=== PATIENT | female | born 1945 | race Caucasian/White ===

== ENCOUNTER 2019-09-25 17:42 | Emergency (ER) | payer MEDICARE, SELFPAY ==
[2019-09-25 17:58] VITALS: BP 148/62; PULSE 67; RESP 20; TEMP 36.3; O2SAT 99
--- NOTE | 2019-09-25 18:03 | ED.FEMALEGU ---
HPI - Female Genitourinary General Chief complaint: Urogenital-Female Stated complaint: pos uti Source: patient and RN notes reviewed Limitations: no limitations History of Present Illness HPI Narrative: The patient, previously mostly healthy, presents with urinary symptoms for a half week with frequency, urgency and mild dysuria.. Record review indicates patient has a ~2015 history of cystitis pansensitive [except Macrobid ]Proteus mirabilis . She complains of similar symptoms that are mild, worse in the micturation .No fever, abdominal pain, N/V/D/dehydration, discharge, rash. The patient has been informed that they may have pre-hypertension or Hypertension based on a BP reading in the department. I recommend that the patient call the primary care provider listed on their discharge instructions or a physician of their choice this week to arrange follow up for further evaluation of possible pre-hypertension or Hypertension Related Data Home Medications Medication Instructions Recorded Confirmed omeprazole 20 mg PO DAILY 09/25/19 09/25/19 triamcinolone acetonide 1 applic TOPICAL DAILY 09/25/19 09/25/19 Allergies Allergy/AdvReac Type Severity Reaction Status Date / Time cefaclor Allergy Unknown Unknown Verified 09/25/19 18:06 doxycycline Allergy Unknown Unknown Verified 09/25/19 18:06 Penicillins Allergy Unknown Unknown Verified 09/25/19 18:06 Sulfa (Sulfonamide Allergy Unknown Unknown Verified 09/25/19 18:06 Antibiotics) Review of Systems Review of Systems: Narrative: General/Constitutional: No weight loss,fever Eyes: N0: Redness,discharge Ears/Nose/Throat: No: Epistaxis,ear discharge Respiratory: Denies: Hemoptysis Gastrointestinal: No Vomiting, Bleeding-rectal Skin: No Lumps, eruption Neurologic: No Focal Weakness,Sz Hematologic: Denies: Petechiae/Purpura Psychiatric: No: Suicida ideationl All Other Systems: Reviewed and Negative [facility] Past Medical History Medical History (Updated 09/26/19 @ 08:54 by Joaquin Teran MD) Anxiety about health Bloating GERD (gastroesophageal reflux disease) Hypoestrogenism Irritable bowel syndrome with constipation Light headed Low vitamin D level Mitral valve prolapse Pelvic floor dysfunction in female Postmenopausal Rectocele Small intestinal bacterial overgrowth Surgical History Surgical History (Updated 03/03/19 @ 18:32 by NEERU Dash) Hx of hysterectomy Social History Social History Smoking status: Never smoker Second hand tobacco smoke exposure: No Alcohol intake: never Comments At time of signature, agree with nursing past medical, surgical, social and family history. There is no relevant family history pertinent to the presenting complaint Exam Narrative: Exam Narrative: General Appearance: Well appearing, No distress EYE: PERRLA, Conjunctiva clear Ears: External ear normal Nose: Normal nose Mouth/Throat: Normal appearing, Normal lips, Supple Respiratory: Airway patent, No respiratory distress Cardiovascular: no JVD Abdomen: Soft, Non-tender, Musculoskeletal: Full ROM Skin: Warm, Dry Neurological: A&O x3, CN II-X intact Psychiatric: Normal mood, Normal affect Course Course Emergency Course: Patient describes multiple, old, unknown allergy mostly gastrointestinal. Cipro was originally sent to the pharmacy, patient requests something different- so prescribed omnicef Vital Signs Vital signs: Vital Signs Temperature 97.3 F L 09/25/19 17:58 Pulse Rate 67 09/25/19 17:58 Respiratory Rate 20 09/25/19 17:58 Blood Pressure 148/62 H 09/25/19 17:58 Pulse Oximetry 99 09/25/19 17:58 Temperature 97.3 F L 09/25/19 17:58 Pulse Rate 67 09/25/19 17:58 Respiratory Rate 20 09/25/19 17:58 Blood Pressure 148/62 H 09/25/19 17:58 Pulse Oximetry 99 09/25/19 17:58 MDM - Female Genitourinary Lab Data Labs: Urine Glucose
== END 2019-09-25 18:21 | disposition home or self-care (01) ==
PROVIDERS: Emergency Provider Emergency Medicine; PCP Internal Medicine
DX: N30.00 Acute cystitis without hematuria (principal); Z96.652 Presence of left artificial knee joint
CPT/HCPCS: 81003; 87077; 87086; 87088; 87186; 99213; G0463

== ENCOUNTER 2019-10-05 14:19 | Emergency (ER) | payer MEDICARE, SELFPAY ==
[2019-10-05 14:30] VITALS: BP 147/74; PULSE 77; RESP 16; TEMP 36.6; O2SAT 100
--- NOTE | 2019-10-05 14:31 | ED.FEMALEGU ---
HPI - Female Genitourinary General Chief complaint: Urogenital-Female Stated complaint: urinary frequency/burning/abdominal pain Time Seen by Provider: 10/05/19 14:31 Source: patient History of Present Illness HPI Narrative: Patient was treated at this facility 10 days ago for urinary tract infection and placed on cefdinir 300 mg twice daily for 10 days. Patient states she finished her antibiotics yesterday. Patient continues with urinary symptoms. Urinary urgency, burning with urination and foul-smelling odor to urine. Patient denies any confusion no fever no flank pain patient denies any gross hematuria. Patient denies any pelvic pain no abdominal pain denies any concern for STDs. MD elicited complaint: dysuria and UTI Urinary symptoms: Dysuria and Urgency Related Data Home Medications Medication Instructions Recorded Confirmed omeprazole 20 mg PO DAILY 09/25/19 10/05/19 triamcinolone acetonide 1 applic TOPICAL DAILY 09/25/19 10/05/19 Allergies Allergy/AdvReac Type Severity Reaction Status Date / Time Penicillins Allergy Unknown Rash Verified 10/05/19 14:44 cefaclor AdvReac Unknown Other Verified 10/05/19 14:48 doxycycline AdvReac Unknown Dizziness Verified 10/05/19 14:46 Sulfa (Sulfonamide AdvReac Unknown Nausea and Verified 10/05/19 14:46 Antibiotics) Vomiting ciprofloxacin [From Cipro] AdvReac Other Verified 10/05/19 14:47 Review of Systems Review of Systems: Narrative: CONSTITUTIONAL: Denies fever, chills, or sweats. EYES: Denies visual changes, redness, or discharge. ENT: Denies rhinorrhea, congestion, sore throat, or otalgia. CARDIOVASCULAR: Denies chest pain, palpitations, or edema. RESPIRATORY: Denies cough or dyspnea. GASTROINTESTINAL: Denies abdominal pain, nausea, vomiting, or diarrhea. GENITOURINARY: Denies hematuria. Reports burning with urination and urinary urgency SKIN: Denies rash or itching. MUSCULOSKELETAL: Denies back pain, joint pain, or myalgia. NEUROLOGIC: Denies headache, numbness, or weakness. PSYCHIATRIC: Denies anxiety or depression. [facility] Past Medical History Medical History (Updated 09/26/19 @ 08:54 by Joaquin Teran MD) Anxiety about health Bloating GERD (gastroesophageal reflux disease) Hypoestrogenism Irritable bowel syndrome with constipation Light headed Low vitamin D level Mitral valve prolapse Pelvic floor dysfunction in female Postmenopausal Rectocele Small intestinal bacterial overgrowth Surgical History Surgical History (Updated 03/03/19 @ 18:32 by NEERU Dash) Hx of hysterectomy Social History Social History Smoking status: Never smoker Second hand tobacco smoke exposure: No Alcohol intake: never Comments At time of signature, agree with nursing past medical, surgical, social and family history. There is no relevant family history pertinent to the presenting complaint Exam Narrative: Exam Narrative: GENERAL: Well-appearing, well-nourished, and in no acute distress. HEAD: Normocephalic, atraumatic. EYES: PERRLA and EOMI. ENT: Nares clear, no rhinorrhea or epistaxis. Mucous membranes moist. NECK: Supple. CHEST: Clear to auscultation. No respiratory distress. HEART: Regular rate and rhythm. No murmur heard. Normal peripheral pulses. ABDOMEN: Soft, nontender, nondistended, normal active bowel sounds. EXTREMITIES: Normal range of motion. No edema. SKIN: Warm, dry, no rash. NEURO: No focal deficits. Alert and oriented x3. Saul Coma Scale Eye Opening: Spontaneous 4 Saul Coma Scale Motor: Obeys Commands 6 Saul Coma Scale Verbal: Oriented 5 Saul Coma Scale Total 15 Course Vital Signs Vital signs: Vital Signs Temperature 36.6 C 10/05/19 14:30 Pulse Rate 77 10/05/19 14:30 Respiratory Rate 16 10/05/19 14:30 Blood Pressure 147/74 H 10/05/19 14:30 Pulse Oximetry 100 10/05/19 14:30 Temperature 36.6 C 10/05/19 14:30 Pulse Rate 77
--- NOTE | 2019-10-05 15:13 | PC.NURSE ---
RAFAELA CANCELLED AT PHARMACY PER CARRIE AGARWAL NP.
== END 2019-10-05 15:00 | disposition home or self-care (01) ==
PROVIDERS: Emergency Provider Nurse Practitioner Family; PCP Internal Medicine
DX: R30.0 Dysuria (principal); K21.9 Gastro-esophageal reflux disease without esophagitis; I34.1 Nonrheumatic mitral (valve) prolapse
CPT/HCPCS: 81003; 87086; 87088; 99213; G0463

== ENCOUNTER 2020-10-14 13:04 | Outpatient (RCR) | payer MEDICARE, SELFPAY ==
--- NOTE | 2020-10-14 16:33 | PTOPEVAL ---
PHYSICAL THERAPY EVALUATION Thank you for referring Patricia Oswald to [facility].? Patricia is not a candidate for skilled PT at this time due to her inability or unwillingness to alter her behavior in order to make functional changes and gains. I agree with the above. Referring Physician Date Admitting Provider: Attending Provider: Joaquin Roberts MD Referring Provider: *PT Outpatient Evaluation Start: 10/14/20 13:23 Freq: Status: Active Protocol: Document 10/14/20 13:23 WENDY (Rec: 10/14/20 14:40 WENDY [id number]) Therapy Assessment Status Assessment Status Assessment Status Evaluation Outpatient Past Medical History Past Medical History Source of Past Medical History Recalled from Previous Visit, Confirmed with Patient/Family Cardiovascular History Hx Mitral Valve Prolapse Yes Respiratory History Hx Other Respiratory Disorders Yes: seasonal allergies Gastrointestinal History Hx Gastroesophageal Reflux Disease Yes Hx Irritable Bowel Yes Genitourinary History Hx Urinary Tract Infection Yes Musculoskeletal History Hx Arthritis Yes Hx Joint Replacement Yes: left knee TKA 2016 HEENT History Hx Cataracts Yes Integumentary History Hx Other Skin Disorders Yes: lichen sclerosis Reproductive History Hx Hysterectomy Yes Hx Other Reproductive Disorders Yes: RECTOCELE, PELVIC FLOOR DYSFUNCTION,lichen sclerosis Psychosocial History Hx Anxiety Yes Hx Depression Yes Evaluation Information Problem Diagnosis constipation due to outlet dysfunction Subjective Information takes water enemas - to help Query Text:As Reported By Patient/ with colon evacuation tries Family to average 3 bowel movements/ day Will have cramping sensation in lower abdominal region Supposed to use a laxative - doesn't like Miralex - feels that she needs to take more than she is supposed to - not regular with it. Likes to use Becerra Milk of Magnesium - tends to take more that she should - has been cautioned against doing this. Coffee will help her BM - but then she will get acid reflux and gastric distress. Drinks 2-3 bottles of water per day. Hasn't had
== END 2020-12-28 14:50 | disposition home or self-care (01) ==
LOC: ANHPT 13:04
DX: K59.02 Outlet dysfunction constipation (principal)
CPT/HCPCS: 97162

== ENCOUNTER 2020-11-19 17:12 | Emergency (ER) | payer MEDICARE, SELFPAY ==
[2020-11-19 17:18] VITALS: BP 157/88; PULSE 69; RESP 16; TEMP 36.3; O2SAT 100
[2020-11-19 17:19] VITALS: BP 157/88; PULSE 69; RESP 16; TEMP 36.3; O2SAT 100
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
--- NOTE | 2020-11-19 17:47 | ECG_ITS ---
Measurements Intervals [place] Rate: 58 P: -69 WV: 148 QRS: 2 QRSD: 104 T: 21 QT: 424 QTc: 418 Interpretive Statements ECTOPIC ATRIAL BRADYCARDIA INCOMPLETE RIGHT BUNDLE BRANCH BLOCK ABNORMAL ECG Electronically Signed On 11-20-2020 8:29:04 CDT by Trip Jama D.O.
[2020-11-19 17:52] VITALS: BP 155/66
== END 2020-11-19 18:03 | disposition left against medical advice (07) ==
PROVIDERS: Emergency Provider Nurse Practitioner Family; PCP Internal Medicine
DX: R42 Dizziness and giddiness (principal); R51.9 Headache, unspecified; K21.9 Gastro-esophageal reflux disease without esophagitis; I34.1 Nonrheumatic mitral (valve) prolapse
CPT/HCPCS: 93005; 99213; G0463

== ENCOUNTER 2021-07-12 19:20 | Emergency (ER) | payer MEDICARE, SELFPAY ==
[2021-07-12 19:26] VITALS: BP 158/56; PULSE 76; RESP 16; TEMP 36.7; O2SAT 99
[2021-07-12 19:37] VITALS: BP 158/56; PULSE 76; RESP 16; TEMP 36.7; O2SAT 99
--- NOTE | 2021-07-12 19:44 | ED.URI ---
HPI - URI/Sore Throat General Chief Complaint: Upper Respiratory Infection Stated Complaint: feels flushed and shaky Time Seen by Provider: 07/12/21 19:45 Source: patient and RN notes reviewed Mode of arrival: ambulatory Limitations: no limitations History of Present Illness HPI Narrative: 76-year-old female presents with concern for tinnitus, postnasal drip. She reports some head congestion and headache, reports she has a history of allergies, however cannot take antihistamines due to her mitral valve prolapse. Reports she does take Flonase. Reports she has been seen by her primary care doctor and an ear nose and throat doctor and is currently being referred to a specialist for her tinnitus. Reports she recently had a head CT that was normal. She reports she got a steroid injection in her back yesterday and has since then felt a little flushed. MD elicited complaint: cough and sore throat Related Data Home Medications Medication Instructions Recorded Confirmed fluticasone propionate 50 2 ea intranasal DAILY 07/12/21 07/12/21 mcg/actuation nasal spray,suspension Allergies Allergy/AdvReac Type Severity Reaction Status Date / Time Penicillins Allergy Unknown Rash Verified 07/12/21 19:26 cefaclor AdvReac Unknown Other Verified 07/12/21 19:26 doxycycline AdvReac Unknown Dizziness Verified 07/12/21 19:26 Sulfa (Sulfonamide AdvReac Unknown Nausea and Verified 07/12/21 19:26 Antibiotics) Vomiting ciprofloxacin [From Cipro] AdvReac Other Verified 07/12/21 19:26 Review of Systems Review of Systems: CONSTITUTIONAL: Denies malaise, chills, sweats, or fever. EYES: Denies visual changes, redness, or discharge. ENT: Reports rhinorrhea, postnasal drip. Denies eye congestion, sinus pain, otalgia and sore throat. Reports tinnitus CARDIOVASCULAR: Denies chest pain, palpitations, or edema. RESPIRATORY: Denies cough. Denies dyspnea. GASTROINTESTINAL: Denies abdominal pain, nausea, vomiting, diarrhea SKIN: Denies rash or itching. MUSCULOSKELETAL: Denies myalgia. NEUROLOGIC: Reports headache. All systems reviewed & are unremarkable except as noted in HPI and below PMFSH Past Medical History Medical History Anxiety about health Bloating GERD (gastroesophageal reflux disease) Hemorrhoids Hypoestrogenism Irritable bowel syndrome with constipation Light headed Low vitamin D level Mitral valve prolapse Pelvic floor dysfunction in female Postmenopausal Rectocele Small intestinal bacterial overgrowth Surgical History Surgical History Hx of hysterectomy Family History Family History Grandparent Cerebrovascular accident Family history of malignant neoplasm Mother Heart disease Other Heart disease Depression Social History Social History Smoking status: Never smoker Second hand tobacco smoke exposure: No Alcohol intake: never Substance use: never Substance use type: does not use Comments At time of signature, agree with nursing past medical, surgical, social and family history. There is no relevant family history pertinent to the presenting complaint Exam Narrative: GENERAL: Well-appearing, well-nourished, and in no acute distress. HEAD: Normocephalic EYES: PERRLA, conjunctivae clear ENT: Nares clear, clear discharge. Mucous membranes moist. TM pearly aleman with sharp light reflex bilaterally; no tragal tenderness. Oropharynx not erythematous without lesions. Tonsils not enlarged and without exudate, no drooling, no hoarseness, no trismus, uvula midline. NECK: Supple. No lymphadenopathy CHEST: Clear to auscultation, breath sounds equal. No wheezing, rhonchi, rales, or stridor. No respiratory distress, speaks in full sentences. HEART: Regular rate and rhythm. No murmur heard.
== END 2021-07-12 20:10 | disposition home or self-care (01) ==
PROVIDERS: Emergency Provider Nurse Practitioner
DX: R09.82 Postnasal drip (principal); Z20.822 Contact with and (suspected) exposure to COVID-19; K21.9 Gastro-esophageal reflux disease without esophagitis; I34.1 Nonrheumatic mitral (valve) prolapse
CPT/HCPCS: 87426; 87804; 99213; C9803; G0463

== ENCOUNTER 2021-09-09 19:44 | Emergency (ER) | payer MEDICARE, SELFPAY ==
--- NOTE | 2021-09-09 19:49 | ED.FALL ---
HPI - Fall General Chief Complaint: Fall Stated Complaint: Fall Injury/Right Arm Injury Time Seen by Provider: 09/09/21 19:49 Source: patient and RN notes reviewed History of Present Illness HPI Narrative: Patient is a 76-year-old female who presents the urgent care with complaints of a bruise to the right upper arm for the last couple days. Patient states that she leaned heavily over a door jam with a lot of things in her hand causing a large bruise and she was concerned. Patient is not on any blood thinners or daily aspirin. Patient states she is also been feeling some fatigue, lethargy and may be some changes in blood pressure. Patient states that she has had these feelings for approximately 2 weeks and her PCP has been telling her to check her blood pressure daily. Patient states her last reading at home was 131/70 and she has stopped her blood pressure medication. Patient denies any chest pain or shortness of breath. Patient has been driving and functioning normally with the intermittent dizziness spells. Patient states she also did a colon prep last night with her long-term history of GI issues and will follow up with her GI doctor regarding those problems. Patient states that she had increased dizziness after the colon prep. No other acute complaints. No acute distress noted. Patient aware of the plan of care. Some parts of this dictation were generated by voice recognition software and may contain typographical and/or grammatical inaccuracies. Related Data Home Medications Medication Instructions Recorded Confirmed amlodipine 5 mg tablet 5 mg PO DAILY 09/09/21 09/09/21 Allergies Allergy/AdvReac Type Severity Reaction Status Date / Time Penicillins Allergy Unknown Rash Verified 09/09/21 20:05 cefaclor AdvReac Unknown Other Verified 09/09/21 20:05 doxycycline AdvReac Unknown Dizziness Verified 09/09/21 20:05 Sulfa (Sulfonamide AdvReac Unknown Nausea and Verified 09/09/21 20:05 Antibiotics) Vomiting ciprofloxacin [From Cipro] AdvReac Other Verified 09/09/21 20:05 Review of Systems Review of Systems: CONSTITUTIONAL: Denies fever, chills, or sweats. Reports of intermittent fatigue EYES: Denies visual changes, redness, or discharge. ENT: Denies rhinorrhea, congestion, sore throat, or otalgia. CARDIOVASCULAR: Denies chest pain, palpitations, or edema. RESPIRATORY: Denies cough or dyspnea. GASTROINTESTINAL: Denies abdominal pain, nausea, vomiting, or diarrhea. GENITOURINARY: Denies dysuria or hematuria. SKIN: Denies rash or itching. Reports of a bruise to the right upper arm MUSCULOSKELETAL: Denies back pain, joint pain, or myalgia. NEUROLOGIC: Reports of intermittent headaches and dizziness All other systems reviewed are negative, except as documented in HPI. [facility] Past Medical History Medical History Anxiety about health Bloating GERD (gastroesophageal reflux disease) Hemorrhoids Hypoestrogenism Irritable bowel syndrome with constipation Light headed Low vitamin D level Mitral valve prolapse Pelvic floor dysfunction in female Postmenopausal Rectocele Small intestinal bacterial overgrowth Surgical History Surgical History Hx of hysterectomy Family History Family History Grandparent Cerebrovascular accident Family history of malignant neoplasm Mother Heart disease Other Heart disease Depression Social History Social History Smoking status: Never smoker Second hand tobacco smoke exposure: No Alcohol intake: never Substance use: never Substance use type: does not use Comments At the time of my signature, I reviewed and agree with the nursing past medical, surgical, social, and family history. There is no relevant family history pertinent to the patient
[2021-09-09 19:51] VITALS: BP 155/77; PULSE 83; RESP 16; TEMP 36.6; O2SAT 99
== END 2021-09-09 20:10 | disposition home or self-care (01) ==
PROVIDERS: Emergency Provider Nurse Practitioner Family
DX: S40.021A Contusion of right upper arm, initial encounter (principal); X58.XXXA Exposure to other specified factors, initial encounter; R03.0 Elevated blood-pressure reading, without diagnosis of hypertension; K21.9 Gastro-esophageal reflux disease without esophagitis; I34.1 Nonrheumatic mitral (valve) prolapse
CPT/HCPCS: 99212; G0463

== ENCOUNTER 2022-07-05 19:10 | Emergency (ER) | payer MEDICARE, SELFPAY ==
[2022-07-05 19:18] VITALS: BP 137/71; PULSE 68; RESP 16; TEMP 35.6; O2SAT 99
--- NOTE | 2022-07-05 19:31 | ED.FEMALEGU ---
HPI - Female Genitourinary General Chief complaint: Urogenital-Female Stated complaint: Urinary Problem Time Seen by Provider: 07/05/22 19:31 Source: patient Mode of arrival: ambulatory Limitations: no limitations History of Present Illness HPI Narrative: 77-year-old female presents with complaint of pelvic pain, urinary frequency, blood in urine for the past 7 days. Reports she has a history of blood in urine. Reports she has had hematuria 3 times in the last week. Afebrile. Reports chronic back pain. Also reports chronic constipation related to IBS. Was seen in the ER 1 week ago and told ?full of gas ?. All systems reviewed and negative except as noted above. Related Data Home Medications Medication Instructions Recorded Confirmed azelastine 137 mcg (0.1 %) nasal 1 spray intranasal DAILY 07/05/22 07/05/22 spray aerosol duloxetine 20 mg capsule,delayed 20 mg PO DAILY 07/05/22 07/05/22 release famotidine 40 mg tablet 40 mg PO DAILY 07/05/22 07/05/22 Allergies Allergy/AdvReac Type Severity Reaction Status Date / Time Penicillins Allergy Unknown Rash Verified 07/05/22 19:24 cefaclor AdvReac Unknown Other Verified 07/05/22 19:24 doxycycline AdvReac Unknown Dizziness Verified 07/05/22 19:24 Sulfa (Sulfonamide AdvReac Unknown Nausea and Verified 07/05/22 19:24 Antibiotics) Vomiting ciprofloxacin [From Cipro] AdvReac Other Verified 07/05/22 19:24 Review of Systems Review of Systems: CONSTITUTIONAL: Denies fever, chills, or sweats. EYES: Denies visual changes, redness, or discharge. ENT: Denies rhinorrhea, congestion, sore throat, or otalgia. CARDIOVASCULAR: Denies chest pain, palpitations, or edema. RESPIRATORY: Denies cough or dyspnea. GASTROINTESTINAL: Denies abdominal pain, nausea, vomiting, or diarrhea. GENITOURINARY: Denies dysuria. Reports pelvic pain, hematuria. SKIN: Denies rash or itching. MUSCULOSKELETAL: Denies back pain, joint pain, or myalgia. NEUROLOGIC: Denies headache, numbness, or weakness. PSYCHIATRIC: Denies anxiety or depression. All other systems reviewed are negative, except as documented in HPI. [facility] Past Medical History Medical History Anxiety about health Bloating GERD (gastroesophageal reflux disease) Hemorrhoids Hypoestrogenism Irritable bowel syndrome with constipation Light headed Low vitamin D level Mitral valve prolapse Pelvic floor dysfunction in female Postmenopausal Rectocele Small intestinal bacterial overgrowth Surgical History Surgical History Hx of hysterectomy Family History Family History Grandparent Cerebrovascular accident Family history of malignant neoplasm Mother Heart disease Other Heart disease Depression Social History Social History Smoking status: Never smoker Second hand tobacco smoke exposure: No Alcohol intake: never Substance use: never Substance use type: does not use Comments At time of signature, agree with nursing past medical, surgical, social and family history. There is no relevant family history pertinent to the presenting complaint. Exam Narrative: GENERAL: This is a well-nourished, well-developed patient, in no apparent distress. HEAD: normocephalic, atraumatic. EYES: PERRL. Sclera clear/white. Vision is grossly intact. EARS: External ears normal NOSE: External nose normal NECK: Neck supple, non-tender without lymphadenopathy, masses or thyromegaly. CARDIOVASCULAR: Regular rate and rhythm without murmurs, gallops, or rubs. RESPIRATORY: Clear to auscultation. Breath sounds equal bilaterally. No wheezes, rales, or rhonchi. SKIN: warm, Dry, intact with no suspicious lesions or rash, good texture and turgor. NEURO: awake, alert, and oriented to person, place and time.
== END 2022-07-05 19:55 | disposition home or self-care (01) ==
PROVIDERS: Emergency Provider Nurse Practitioner Family
DX: N39.0 Urinary tract infection, site not specified (principal); K21.9 Gastro-esophageal reflux disease without esophagitis; I34.1 Nonrheumatic mitral (valve) prolapse
CPT/HCPCS: 81003; 87086; 99213; G0463

== ENCOUNTER 2023-02-17 16:35 | Emergency (ER) | payer MEDICARE, SELFPAY ==
[2023-02-17 16:45] VITALS: BP 160/70; PULSE 78; RESP 20; TEMP 36.7; O2SAT 99
--- NOTE | 2023-02-17 17:26 | ED.DENTAL ---
HPI - Dental/Oral General Chief complaint: Dental/Oral Stated complaint: Toothache/Abdominal Pain Source: patient, RN notes reviewed and old records reviewed Mode of arrival: ambulatory Limitations: no limitations History of Present Illness HPI Narrative: 77 year female presents to [facility] with complaint left lower dental pain this started in November. Patient states seen a dentist chest pain pain patient states was given dexamethasone with no relief. Patient was then prescribed clindamycin the patient states is scared to take clindamycin because she has history of IBS and is worried she is going to flare up. Patient also states has had increased acid reflux. Patient already taking 20 of omeprazole. MD Complaint: tooth pain Related Data Home Medications Medication Instructions Recorded Confirmed esomeprazole magnesium 20 mg 20 mg PO DAILY 02/17/23 02/17/23 capsule,delayed release Allergies Allergy/AdvReac Type Severity Reaction Status Date / Time Penicillins Allergy Unknown Rash Verified 02/17/23 17:24 cefaclor AdvReac Unknown Other Verified 02/17/23 17:24 doxycycline AdvReac Unknown Dizziness Verified 02/17/23 17:24 Sulfa (Sulfonamide AdvReac Unknown Nausea and Verified 02/17/23 17:24 Antibiotics) Vomiting ciprofloxacin [From Cipro] AdvReac Other Verified 02/17/23 17:24 Review of Systems Constitutional: Constitutional: Reports no additional constitutional complaints, Denies body ache(s), Denies chills, Denies fatigue, Denies fever(s) and Denies headache(s) Eyes: Eyes: Reports no additional eye complaints and Denies blurry vision ENT: Reports system reviewed and no additional complaints, except as documented, Reports dental pain, Denies vertigo, Denies dizziness, Denies ear discharge, Denies otalgia, Denies facial pain, Denies headache(s), Denies nasal congestion, Denies nasal discharge, Denies sinus pain, Denies sinus pressure and Denies sore throat Cardiovascular: Cardiovascular: Reports no additional cardiovascular complaints, Denies chest pain, Denies chest pain at rest, Denies rapid heart rate and Denies dyspnea Respiratory: Respiratory: Reports no additional respiratory complaints, Denies chest congestion, Denies cough, Denies pain on inspiration, Denies pain with cough and Denies dyspnea Gastrointestinal: Gastrointestinal: Reports abdominal pain, Denies diarrhea, Denies nausea and Denies vomiting Integumentary/Breasts: Skin/Breast: Denies rash Neurologic: Reports system reviewed and no additional complaints, except as documented, Denies vertigo, Denies dizziness and Denies headache(s) Endocrine: Endocrine: Denies fatigue PMFSH Past Medical History Medical History Anxiety about health Bloating GERD (gastroesophageal reflux disease) Hemorrhoids Hypoestrogenism Irritable bowel syndrome with constipation Light headed Low vitamin D level Mitral valve prolapse Pelvic floor dysfunction in female Postmenopausal Rectocele Small intestinal bacterial overgrowth Surgical History Surgical History Hx of hysterectomy Family History Family History Grandparent Cerebrovascular accident Family history of malignant neoplasm Mother Heart disease Other Heart disease Depression Social History Social History Smoking status: Never smoker Second hand tobacco smoke exposure: No Alcohol intake: never Substance use: never Substance use type: does not use Comments At the time of my signature, I reviewed and agree with the nursing past medical, surgical, social, and family history. There is no relevant family history pertinent to the patient complaint. Exam Const: General: cooperative, healthy appearing, no acute distress and well nourished Nutritional Appearance: we
== END 2023-02-17 17:33 | disposition home or self-care (01) ==
PROVIDERS: Emergency Provider Registered Nurse
DX: K04.7 Periapical abscess without sinus (principal); K21.9 Gastro-esophageal reflux disease without esophagitis; I34.1 Nonrheumatic mitral (valve) prolapse
CPT/HCPCS: 99211; G0463

== ENCOUNTER 2023-06-26 18:35 | Emergency (ER) | payer MEDICARE, SELFPAY ==
[2023-06-26 18:44] VITALS: BP 138/74; PULSE 60; RESP 16; TEMP 37.1; O2SAT 100
--- NOTE | 2023-06-26 19:17 | ED.GENADULT ---
HPI - General Adult General Chief complaint: Ear Stated complaint: Ear Irritation, Headache, Drainage Source: patient Mode of arrival: ambulatory Limitations: no limitations History of Present Illness HPI narrative: Patient presents for evaluation of bilateral tinnitus. She has had symptoms for last 4-5 years. She had COVID at the end of 2022. Since that time her symptoms have been worse. She actually states in last week and have her symptoms of also amplified. She has some chronic postnasal drainage following COVID in 2022. She has seen several ENT providers regarding the tinnitus. It sounds like one of the providers thought her symptoms were secondary to PPI and switch her to Pepcid. She was also told that her anxiety could be contributory. She denies any headache, weakness whether physical symptoms. She is here today to try to figure out what is causing her tinnitus. She reports stress and anxiety. No thoughts of self-harm. She has the support of her , with whom she lives. Related Data Home Medications Medication Instructions Recorded Confirmed azelastine 137 mcg (0.1 %) nasal intranasal 06/26/23 spray aerosol famotidine 40 mg tablet mg 06/26/23 Allergies Allergy/AdvReac Type Severity Reaction Status Date / Time Penicillins Allergy Unknown Rash Verified 02/17/23 17:24 cefaclor AdvReac Unknown Other Verified 02/17/23 17:24 doxycycline AdvReac Unknown Dizziness Verified 02/17/23 17:24 Sulfa (Sulfonamide AdvReac Unknown Nausea and Verified 02/17/23 17:24 Antibiotics) Vomiting ciprofloxacin [From Cipro] AdvReac Other Verified 02/17/23 17:24 Review of Systems Review of Systems: CONSTITUTIONAL: Denies fever, chills, or sweats. EYES: Denies visual changes, redness, or discharge. ENT: Reports chronic tinnitus and postnasal drainage.. Denies sore throat or otalgia. CARDIOVASCULAR: Denies chest pain, palpitations, or edema. RESPIRATORY: Denies cough or dyspnea. GASTROINTESTINAL: Denies abdominal pain, nausea, vomiting, or diarrhea. GENITOURINARY: Denies dysuria or hematuria. SKIN: Denies rash or itching. MUSCULOSKELETAL: Denies back pain, joint pain, or myalgia. NEUROLOGIC: Denies headache, numbness, dizziness, or weakness. PSYCHIATRIC: Reports anxiety. Denies depression. [facility] Past Medical History Medical History (Updated 06/26/23 @ 19:44 by Joaquin Cook, NEERU, ) Anxiety about health Bloating GERD (gastroesophageal reflux disease) Hemorrhoids Hypoestrogenism Irritable bowel syndrome with constipation Light headed Low vitamin D level Mitral valve prolapse Pelvic floor dysfunction in female Postmenopausal Rectocele Small intestinal bacterial overgrowth Tinnitus Surgical History Surgical History Hx of hysterectomy Family History Family History Grandparent Cerebrovascular accident Family history of malignant neoplasm Mother Heart disease Other Heart disease Depression Social History Social History Smoking status: Never smoker Second hand tobacco smoke exposure: No Alcohol intake: never Substance use: never Substance use type: does not use Exam Narrative: GENERAL: Well-appearing, well-nourished, and in no acute distress. HEAD: Normocephalic, atraumatic. EYES: PERRLA and EOMI. ENT: Nares clear, no rhinorrhea or epistaxis. Mucous membranes moist. Oropharynx without tonsillar hypertrophy exudate or other lesions. Bilateral TMs pearly aleman nonbulging NECK: Supple. No adenopathy or masses. No carotid bruits or JVD CHEST: Clear to auscultation. No respiratory distress. No wheezes rales or rhonchi HEART: Regular rate and rhythm. No murmur heard. Normal peripheral pulses. ABDOMEN: Soft, nontender, nondistended, normal active bowel sounds. EXTREMITIES: Normal range of margret
[2023-06-26 19:34] LABS: SARS-CoV-2 RNA PCR Negative (Negative)
[2023-06-26 19:43] VITALS: BP 138/74; PULSE 60; RESP 16; TEMP 37.1; O2SAT 100
== END 2023-06-26 19:45 | disposition home or self-care (01) ==
PROVIDERS: Emergency Provider Nurse Practitioner
DX: H93.13 Tinnitus, bilateral (principal); F43.9 Reaction to severe stress, unspecified; K21.9 Gastro-esophageal reflux disease without esophagitis; Z20.822 Contact with and (suspected) exposure to COVID-19
CPT/HCPCS: 87635; 99213; G0463